=== PATIENT | female | born 1965 | race Caucasian/White ===

== ENCOUNTER 2019-10-17 05:36 | Emergency (ER) | payer MEDICAID, SELFPAY ==
[~2019-10-17] VITALS: Ht 170.2 cm; Wt 52.7 kg
[2019-10-17] MEDS ORDERED: AMLO10TA5 PO (05:45)
[2019-10-17] MEDS ORDERED: COLA100C5 PO (05:45)
[2019-10-17] MEDS ORDERED: OXYC-517 PO (05:45)
[2019-10-17] MEDS ORDERED: MORP20SOL PO (05:45)
[2019-10-17] MEDS ORDERED: DEXA4TA PO (05:45)
[2019-10-17] MEDS ORDERED: LIDOCAINE 1% MDV 20ML VIAL SC ONE (06:00)
[2019-10-17] MEDS ORDERED: ADACEL/BOOSTRIX VACCINE (DIPHTH/PERTUSS/ACELL/TETANUS)0.5ML SYR (90715) IM ONE (06:30)
[2019-10-17 07:06] VITALS: BP 131/79
== END 2019-10-17 07:31 | disposition home or self-care (01) ==
LOC: M ED 05:36
DX: S01.81XA Laceration without foreign body of other part of head, initial encounter (principal); W19.XXXA Unspecified fall, initial encounter; Y92.129 Unspecified place in nursing home as the place of occurrence of the external cause; Y93.9 Activity, unspecified; Y99.9 Unspecified external cause status; C50.919 Malignant neoplasm of unspecified site of unspecified female breast; I10 Essential (primary) hypertension; F17.200 Nicotine dependence, unspecified, uncomplicated; Z79.899 Other long term (current) drug therapy